=== PATIENT | female | born 2000 | race Caucasian/White ===

== ENCOUNTER 2023-08-14 18:49 | Emergency (ER) | payer BC ==
[~2023-08-14] VITALS: Ht 157.5 cm; Wt 83.8 kg
[2023-08-14 21:23] LABS: BASOPHILS 0.6 % (0-2); EOSINOPHILS 2.3 % (0-6); HEMATOCRIT 42.8 % (35.0-50.0); HEMOGLOBIN 14.5 g/dL (12.0-18.0); LYMPHOCYTES 17.2 % (24-44); MCH 29.1 (27-36); MCV 85.8 fl (81-99); MONOCYTES 4.9 % (0-12); PLATELET COUNT 361 K/uL (140-440); RBC 4.99 M/ul (4.3-5.7)
[2023-08-14 21:30] LABS: BILIRUBIN, URINE NEGATIVE (negative); BLOOD/HGB, URINE NEGATIVE (Negative); KETONE, URINE NEGATIVE (Negative); LEUK ESTERASE, URINE NEGATIVE (negative); NITRITE, URINE NEGATIVE (negative)
[2023-08-14 21:34] LABS: PREGNANCY TEST, URINE NEGATIVE (NEG)
[2023-08-14 21:45] LABS: AMPHETAMINES, URINE NEGATIVE (NEGATIVE); BARBITURATES, URINE NEGATIVE (NEGATIVE); BENZODIAZEPINE, URINE NEGATIVE (NEGATIVE); BUPRENORPHINE, URINE NEGATIVE (NEGATIVE); CANNABINOID, URINE NEGATIVE (NEGATIVE); COCAINE, URINE POSITIVE (NEGATIVE); ECSTASY, URINE NEGATIVE (NEGATIVE); FENTANYL, URINE NEGATIVE (NEGATIVE); METHADONE, URINE NEGATIVE (NEGATIVE); OPIATES, URINE NEGATIVE (NEGATIVE); OXYCODONE, URINE NEGATIVE (NEGATIVE); PHENCYCLIDINE, URINE NEGATIVE (NEGATIVE)
[2023-08-14 21:49] LABS: ALBUMIN 3.4 g/dL (3.4-5.0); ALBUMIN/GLOBULIN RATIO 0.85 (1.1-2.4); BILIRUBIN, TOTAL 0.2 ng/dL (0.2-1.0); CALCIUM 8.8 mg/dL (8.5-10.1); CREATININE, SERUM 0.8 mg/dL (0.55-1.02); PROTEIN, TOTAL 7.4 g/dL (6.4-8.2)
--- NOTE | 2023-08-15 22:23 | EKG ---
[facility] [address] [facility] [place] [address] Signed Normal sinus rhythm with sinus arrhythmia Left anterior fascicular block Abnormal ECG No previous ECGs available Confirmed by Kellie Choudhury MD () on 08/15/2023 10:23:18 PM Electronically Signed By: KELLIE CHOUDHURY MD 08/15/232222 PATIENT NAME: ALLIE SAMPSON Electrocardiogram DATE OF : [birth year] PHYSICIAN: KELLIE CHOUDHURY MD REPORT #: [id number] REPORT IS CONFIDENTIAL AND NOT TO BE RELEASED WITHOUT AUTHORIZATION
== END 2023-08-14 22:18 | disposition home or self-care (01) ==
LOC: ED 18:49
PROVIDERS: Internal Medicine
DX: M94.0 Chondrocostal junction syndrome [Tietze] (principal); I44.4 Left anterior fascicular block
CPT/HCPCS: 36415; 71046; 80053; 80307; 81003; 84484; 84703; 85025; 93005; 93010